=== PATIENT | female | born 1955 | race Caucasian/White ===

== ENCOUNTER 2019-10-25 10:09 | Day surgery (SDC) | payer BC ==
[2019-10-24 11:27] VITALS: BMI 26.4
--- NOTE | 2019-10-24 14:26 | HP ---
HISTORY OF PRESENT ILLNESS: Tia Mejia is a 64-year-old female, having epigastric right upper quadrant pain, back radiation, shoulder radiation for several episodes over the past year. She has seen Dr. Lozoya. Endoscopy deferred. Ultrasound and CAT scan revealed a 1.5-cm enhancing density fundus. Plan is for laparoscopic video cholecystectomy as an outpatient. She understands risks and benefits of procedure and consents. ALLERGIES: NONE. MEDICATIONS: Lexapro 10 mg a day. SOCIAL HISTORY: Alcohol rarely. Tobacco cessation, 40 to 45 years ago. PAST SURGICAL HISTORY: 3 C-sections, tubal ligation, and tonsillectomy. The patient's cardiac stress test in the last year was normal. This was done in [place]. She is asymptomatic from a cardiac standpoint. REVIEW OF SYSTEMS: Ten-point noncontributory. PHYSICAL EXAMINATION: VITAL SIGNS: 141 pounds, 5 feet tall, BMI, blood pressure 144/77, pulse 78, and temperature 97.7 degrees. HEAD, EARS, EYES, NOSE, AND THROAT: Unremarkable. Sclerae nonicteric. LUNGS: Clear to auscultation. CARDIAC: Regular rhythm without murmur or gallop. ABDOMEN: Soft and nontender. No masses. EXTREMITIES: Unremarkable. SKIN: Nonjaundiced. ASSESSMENT: Biliary symptoms with a gallbladder ultrasound and CAT scan abnormality. PLAN: Laparoscopic cholecystectomy. Risks of infection, bleeding, visceral and biliary injury, open procedure were discussed, she consents. Job ID: [id number]
[~2019-10-25 10:09] MED LIST: Dexamethasone 20 MG/5 ML VIAL ONE; EPHEDRINE 25 MG/5 ML SYRINGE ONE; Esmolol 100 MG/10 ML VIAL ONE; Glycopyrrolate 0.2 MG/ML 5 ML SYRINGE ONE; Lidocaine 1% PF 5 ML VIAL ONE; Ondansetron PF 4 MG/2 ML Vial ONE; PROPOFOL 200 MG/20 ML VIAL ONE; Rocuronium Bromide 10 MG/ML (10ML VIAL) ONE
[2019-10-25] MEDS ORDERED: Fentanyl 100 MCG/2 ML VIAL ONE ×3 (10:29→11:37)
[2019-10-25] MEDS ORDERED: Acetaminophen 500 MG TAB ONE (10:31)
[2019-10-25] MEDS ORDERED: Ketorolac Tromethamine 30 MG/ML VIAL ONE (10:40)
[2019-10-25 10:49] LABS: #Basophils 0.1 thou/uL (0.0-0.2); #Eosinphils 0.1 thou/uL (0.0-0.7); #Lymphocytes 2.3 thou/uL (1.20-3.40); #Monocytes 0.4 thou/uL (0.11-0.59); %Basophils 1.1 % (0.0-1.0); %Eosinophils 2.3 % (0.0-10.0); %Lymphocytes 38.7 % (21.0-51.0); %Monocytes 7.2 % (0.0-10.0); %Neutrophils 50.6 % (42.0-75.0); Hemoglobin 14.2 g/dL (12.0-16.0); Mean Corpuscular HGB CONC 33.6 g/dL (32.0-36.0); Mean Corpuscular Hemoglobin 30.4 pg (27.0-31.0); Mean Corpuscular Volume 90.4 fL (78.0-98.0); Platelet Count 259 thou/uL (130-400); Red Blood Cell (RBC) Count 4.67 mill/uL (4.20-5.40); White Blood Cell (WBC) Count 5.9 thou/uL (4.8-10.8)
[2019-10-25 11:14] LABS: Anion Gap 10 mmol/L (10-20); BUN (Urea Nitrogen) 18 mg/dL (9.8-20.1); Calc. Creatinine Clearance 74 mL/min (70-130); Calcium 9.9 mg/dL (7.8-10.44); Carbon Dioxide 30 mmol/L (23-31); Chloride 103 mmol/L (98-107); Estimated GFR-MDRD 78; Glucose 96 mg/dL (80-115); Potassium 4.1 mmol/L (3.5-5.1); Sodium 139 mmol/L (136-145)
[2019-10-25] MEDS ORDERED: Lidocaine 1% w/Epinephrine 1:100K 20 ML VIAL ONE (11:33)
[2019-10-25] MEDS ORDERED: Bupivacaine PF 0.5% 30 ML VIAL ONE (11:33)
[2019-10-25] MEDS ORDERED: SUGAMMADEX SODIUM 200 MG/2 ML VIAL ONE (11:37)
--- NOTE | 2019-10-25 17:47 | OP ---
DATE OF PROCEDURE: 10/25/2019 PREOPERATIVE DIAGNOSES: Chronic cholecystitis and cholelithiasis. POSTOPERATIVE DIAGNOSES: Chronic cholecystitis and cholelithiasis. PROCEDURE PERFORMED: Laparoscopic video cholecystectomy. ANESTHESIA: General, local 0.5% Marcaine 30 mL and 1% Xylocaine with epinephrine, 20 mL total volume used. DESCRIPTION OF PROCEDURE: The patient was taken to the operating room, where under general anesthesia, abdomen was prepared with ChloraPrep and draped in routine fashion. Local anesthetic was infiltrated in the skin and subcutaneous tissue about all port sites. A right subxiphoid incision was made. Pneumoperitoneum to 15 mmHg was obtained with a Veress needle, replaced with a 10 port, and video laparoscope was inserted. There were no adhesions periumbilically despite previous infraumbilical incision. An infraumbilical incision was made, and a 5 port was placed. Right lateral subcostal incision was made at midclavicular entrance line, and a 5 port was placed. Liver appeared to be normal. Video laparoscope was moved to the infraumbilical port. Fundus of the gallbladder was grasped at the cephalad. The infundibulum was grasped and reflected laterally. Cystic artery and duct were dissected free. Critical view was obtained. Cystic artery and duct were doubly clipped proximally, divided, and gallbladder was dissected free from liver bed obtaining good hemostasis prior to division of the final peritoneal attachments. Gallbladder and contents were removed and submitted to Pathology. Good hemostasis was ensured with cautery. Irrigant and pneumoperitoneum were evacuated. All instruments were removed, and all skin incisions were approximated with interrupted subdermal 4-0 Monocryl, and Rosanky glue was applied. Job ID: [id number]
== END 2019-10-25 14:15 | disposition home or self-care (01) ==
LOC: SDC 10:09
PROVIDERS: ATTEND Specialist
PROC: 0FT44ZZ Resection of Gallbladder, Percutaneous Endoscopic Approach (ICD-10-PCS; principal; 2019-10-25)
DX: K80.10 Calculus of gallbladder with chronic cholecystitis without obstruction (principal); Z79.899 Other long term (current) drug therapy; Z87.891 Personal history of nicotine dependence
CPT/HCPCS: 36415; 80048; 85025; 88304; J0690; J1100; J1885; J2001; J2405; J2704; J3010; S0020